=== PATIENT | male | born 1970 | race Caucasian/White ===

== ENCOUNTER → 2025-03-17 12:48 | Outpatient (REF) | payer BC, SELFPAY | LOC: RCS 12:48 | PROVIDERS: ATTENDING PHYSICIAN Internal Medicine Cardiovascular Disease; FAMILY PHYSICIAN Family Medicine | DX: I25.10 Atherosclerotic heart disease of native coronary artery without angina pectoris (principal); R00.1 Bradycardia, unspecified; R00.2 Palpitations | CPT/HCPCS: 93306 ==

== ENCOUNTER 2025-10-06 16:27 | Emergency (ER) | payer BC, SELFPAY ==
[2025-10-06 16:36] VITALS: BMI 26.5
[2025-10-06 16:40] VITALS: BP 130/97
--- NOTE | 2025-10-06 17:02 | ED.GENMED ---
History of Present Illness
General
Chief Complaint: Post Operative Problem(s)
Source: patient
Exam Limitations: none
Time Seen by Provider: 10/06/25 16:50
History of Present Illness
History of Present Illness:
55-year-old male presents via EMS from home with bleeding to the right shoulder. He had right shoulder rotator cuff repair done earlier today and at home he started to have a saturated dressing on the shoulder and blood was oozing from around the
dressing. No chest pain or sob, or lightheadedness. He is on baby aspirin. No other complaints.
Past History
Past History
ED Past Medical History: CAD, HTN and Hypercholesterolemia
Social History
Tobacco: Non-smoker
Alcohol: Occasional
Drug: Marijuana
Personal:
Living: with family
Phy Exam
Physical Exam
Physical Exam:
General: Well-appearing male no acute respiratory distress
HEENT normal cephalic
Skin: The surgical dressing was saturated with blood. This had to be removed to find a source of bleeding. The most anterior incision had a small arterial bleeding from the incision. The remaining incisions were without any active bleeding
Course
Orders/Labs/Results
Orders:
Orders
10/06/25 17:10
Cephalexin Monohydrate [Keflex] 500 mg PO NOW STA
Vital Signs
Initial and Last Documented VS:
Initial Vital Signs
Temp Pulse Resp BP Pulse Ox
98.1 F 98 16 130/97 98
10/06/25 16:40 10/06/25 16:40 10/06/25 16:40 10/06/25 16:40 10/06/25 16:40
Last Documented Vital Signs
Temp Pulse Resp BP Pulse Ox
98.1 F 98 16 130/97 98
10/06/25 16:40 10/06/25 16:40 10/06/25 16:40 10/06/25 16:40 10/06/25 17:03
MDM/Problems Addressed
Differential Diagnosis Includes:
Bleeding surgical incision from earlier today. This was cleansed with saline and 2 more 4-0 Prolene sutures were placed into the incision to provide hemostasis. I spoke with surgeon on-call over the telephone after the son called and they advised
placing Steri-Strips and gauze ABD pads and tape over the wounds. He was started on Keflex based on surgical recommendation
*Pulse Oximetry
SaO2: 98
Oxygen Mode of Delivery: Room air
Patient hypoxic: no
*Critical Care Note
Total Time (30-74mins, 75-104mins- exclusive of procedures): Not Applicable
ED Attending Note
-
Portions of this chart may have been created with voice recognition software.� Occasional wrong word or��sound alike� substitutions may have occurred due to the inherent limitations of voice recognition software.
Discharge Plan
Departure
Patient Disposition: Home (Routine Discharge)
Date of Disposition: 10/06/25
Time of Disposition: 17:11
Patient with high blood pressure during this ER visit?: No
Discharge Problem:
Postoperative bleeding from incision
Instructions: Bleeding After Surgery
Prescriptions:
New
cephalexin 500 mg capsule
500 mg PO QID Qty: 19 0RF
No Action
guselkumab [Tremfya] 100 MG/ML syringe
100 mg SQ .[id number]
atorvastatin 80 MG tablet
80 mg PO QPM Qty: 90 10RF
nitroglycerin 0.4 MG tablet, sublingual
0.4 mg sublingual [id number] PRN (Reason: chest pain) Qty: 25 10RF
aspirin 81 MG tablet,chewable
81 mg PO DAILY 0RF
ticagrelor [Brilinta] 90 MG tablet
90 mg PO BID Qty: 60 10RF
metoprolol succinate 25 MG tablet extended release 24 hr
25 mg PO DAILY Qty: 90 10RF
lisinopril 2.5 MG tablet
2.5 mg PO DAILY Qty: 90 10RF
levothyroxine 100 MCG tablet
100 mcg PO DAILY
Activity Restrictions/Additional Instructions:
Keep dressing on and dry. Follow-up with surgeon as directed. Take antibiotics as directed. Return if needed otherwise
Interventions
Interventions:
*Risk Screen - Suicide Last Done: 10/06/25 17:37
*General Assessment Last Done: 10/06/25 16:34
*Neglect/Abuse Screening Last Done: 10/06/25 16:34
*ED- Fall Risk Assessment Last Done: 10/06/25 16:34
*ED COVID-19 Vaccine History Last Done: 10/06/25 16:34
*ED Influenza Vaccine History Last Done: 10/06/25 16:34
*Nursing Disposition Last Done: 10/06/25 17:42
ED-Skin Assessment Last Done: 10/06/25 16:36
Discharge Date and Time
Discharge Date/Time: 10/06/25 17:48
Print Language: ESTONIAN
[2025-10-06] MEDS: KEFLEX 500 MG PO (17:35)
== END 2025-10-06 17:48 | disposition home or self-care (01) ==
LOC: EMR 16:27
PROVIDERS: EMERGENCY PHYSICIAN Student in an Organized Health Care Education/Training Program
DX: L76.22 Postprocedural hemorrhage of skin and subcutaneous tissue following other procedure (principal); I25.10 Atherosclerotic heart disease of native coronary artery without angina pectoris; I10 Essential (primary) hypertension; E78.00 Pure hypercholesterolemia, unspecified; Z79.82 Long term (current) use of aspirin
CPT/HCPCS: 99283; 12001